=== PATIENT | male | born 1950 | race Caucasian/White ===

== ENCOUNTER 2020-05-30 13:02 | Emergency (ER) | payer OTHER ==
[~2020-05-30] VITALS: Ht 180.3 cm; Wt 102.1 kg
--- NOTE | 2020-05-30 15:24 | NUR ---
first contact with pt. pt to room from lobby.
--- NOTE | 2020-05-30 15:24 | NUR ---
c/o of injury to left and right arms, and left hip after falling down escaltor and getting stuck at the bottom for a minute before being able to kick self off. pt states he hit side of left head but did not have loc.
[2020-05-30] MEDS ORDERED: NEOSPORIN OINT. PKT 1 PACKET ONE (15:58)
[2020-05-30 16:14] VITALS: BP 139/41
== END 2020-05-30 16:27 | disposition home or self-care (01) ==
LOC: ED 16:21
DX: S50.312A Abrasion of left elbow, initial encounter (principal); S50.311A Abrasion of right elbow, initial encounter; S50.812A Abrasion of left forearm, initial encounter; S50.811A Abrasion of right forearm, initial encounter; S80.211A Abrasion, right knee, initial encounter; X58.XXXA Exposure to other specified factors, initial encounter; Y93.89 Activity, other specified; Y92.89 Other specified places as the place of occurrence of the external cause; Y99.8 Other external cause status
CPT/HCPCS: 99284